=== PATIENT | male | born 1970 | race American Indian/Alaskan Native ===

== ENCOUNTER 2019-02-20 08:43 | Emergency (ER) | payer BC ==
[2019-02-20 08:53] VITALS: BP 156/97
--- NOTE | 2019-02-20 09:18 | Emergency Department Report ---
Chief Complaint: Extremity Injury, Lower Stated Complaint: (R) FOOT PAIN Time Seen by Provider: 02/20/19 09:13 - HPI History of Present Illness: Mr. Oneill is a 48-year-old male with history of diabetes mellitus and hypertension who presents with toe ulcer for the past year. His phlebotomy support tech was concerned for infection and possible osteomyelitis. His phlebotomy support tech referred patient to the ER for MRI. He is currently on antibiotics. He's been on the antibiotics On my exam patient small 0.8 cm x 1.5 cm ulcer at the medial region of the second toe. Mild edema at the mid toe. Mr. Oneill explained that he has had the ulcer for the past year. He just recently obtained treatment by a phlebotomy support tech. I explained that he should obtain MRI on an outpatient basis. He does not have signs of overt cellulitis or abscess. I have referred patient to his PCP Dr. Shore. I have recommended that the MRI be ordered by his PCP. He does not have an acute emergent condition which needs treatment at this time. I am not convinced he even has toe cellulitis. - Exam Vital Signs: Vital Signs 02/20/19 08:52 Temperature 98.4 F Pulse Rate 113 H Respiratory 18 Rate Blood Pressure 156/97 O2 Sat by Pulse 97 Oximetry MSE screening note: Focused history and physical exam performed. Due to findings the following was ordered: ED Disposition for MSE Clinical Impression: Toe ulcer due to DM Disposition: Z-07 MED SCREENING EXAM-LEFT Is pt being admited?: No Does the pt Need Aspirin: No Condition: Stable Additional Instructions: Please have Dr. Shore order the MRI of your foot as written on the form.
== END 2019-02-20 09:23 | disposition left against medical advice (07) ==
LOC: ED 08:43
DX: E11.621 Type 2 diabetes mellitus with foot ulcer (principal); M79.671 Pain in right foot
CPT/HCPCS: 82962; 99283